=== PATIENT | male | born 1970 | race African-American/Black ===

== ENCOUNTER → 2019-01-14 | Outpatient (CLI) | payer BC ==
[2019-01-14 06:58] LABS: BASOPHILS % 0.3 % (0.0-2.0); EOSINOPHILS % 1.8 % (0.0-5.0); HEMATOCRIT. 45.6 % (42.0-52.0); LYMPHOCYTES % 52.5 % (20.0-50.0); MEAN CORPUSCULAR VOLUME 82.2 fL (80.0-94.0); MEAN PLATELET VOLUME 9.3 fl (7.4-10.4); MONOCYTES % 9.4 % (2.0-8.0); PLATELET 200 x1000/uL (130-400); RED BLOOD CELL COUNT 5.55 mill/uL (4.7-6.1); RED CELL DISTRIBUTION WIDTH 14.7 % (11.6-14.6)
[2019-01-14 07:17] LABS: CHLORIDE 109 mEq/L (98-107)
[2019-01-14 07:27] LABS: HDL CHOLESTEROL 89 mg/dL (40-59); LDL CHOLESTEROL 73 mg/dL (5-100); TOTAL IRON BINDING CAPACITY 310 ug/dL (250-450)
[2019-01-17 13:48] LABS: PROSTRATE SPECIFIC AG TOTAL 0.87 ng/mL (0.0-4.0)
== END | disposition home or self-care (01) ==
LOC: LAB 05:59
PROVIDERS: ATTEND Family Medicine
DX: Z00.01 Encounter for general adult medical examination with abnormal findings (principal)
CPT/HCPCS: 36415; 80061; 82607; 83036; 83540; 83550; 84153; 84403; 84443; G0103

== ENCOUNTER → 2022-02-10 | Outpatient (CLI) | payer BC ==
[~2022-02-10] MED LIST: CELE200C PO; CYCL10TA21 PO
[2022-02-10 09:26] LABS: CHLORIDE 109 mEq/L (98-107)
== END | disposition home or self-care (01) ==
LOC: LAB 08:47
PROVIDERS: ATTEND Family Medicine
DX: R10.12 Left upper quadrant pain (principal)
CPT/HCPCS: 36415; 80053

== ENCOUNTER → 2022-02-14 | Outpatient (CLI) | payer BC ==
[~2022-02-14] MED LIST changes: +IOHEXOL-300 100 ML BOTTLE ONE
== END | disposition home or self-care (01) ==
LOC: CT 07:08
PROVIDERS: ATTEND Family Medicine
DX: K44.9 Diaphragmatic hernia without obstruction or gangrene (principal); K40.20 Bilateral inguinal hernia, without obstruction or gangrene, not specified as recurrent; K57.30 Diverticulosis of large intestine without perforation or abscess without bleeding; K22.89 Other specified disease of esophagus; D18.09 Hemangioma of other sites; Z98.890 Other specified postprocedural states
CPT/HCPCS: 74178; Q9967; Z7610

== ENCOUNTER 2022-12-07 17:39 | Emergency (ER) | payer BC ==
[~2022-12-07] VITALS: Ht 193 cm; Wt 90.0 kg
[~2022-12-07 17:39] MED LIST changes: -IOHEXOL-300 100 ML BOTTLE ONE
[2022-12-07] MEDS ORDERED: ONDANSETRON HCL 4MG/2ML INJ IV ONE (18:00)
[2022-12-07] MEDS ORDERED: SODIUM CHLORIDE 0.9% 1,000 ML IV ONE (18:00)
[2022-12-07] MEDS ORDERED: MORPHINE SULFATE 4 MG/ML CPJ (NOT FOR IM USE) IV ONE (18:00)
[2022-12-07 18:17] LABS: BASOPHILS % 2.1 % (0.0-2.0); EOSINOPHILS % 1.6 % (0.0-5.0); HEMATOCRIT. 44.5 % (42.0-52.0); HEMOGLOBIN. 14.9 g/dL (14.0-18.0); LYMPHOCYTES % 48.3 % (20.0-50.0); MEAN CORPUSCULAR VOLUME 77.8 fL (80.0-94.0); MONOCYTES % 9.1 % (2.0-8.0); NEUTROPHILS % 38.9 % (40.0-76.0); PLATELET 248 x1000/uL (130-400); RED BLOOD CELL COUNT 5.72 mill/uL (4.7-6.1); RED CELL DISTRIBUTION WIDTH 14.9 % (11.6-14.6)
[2022-12-07 18:35] LABS: CHLORIDE 108 mEq/L (98-107)
[2022-12-07 18:49] LABS: PROTHROMBIN TIME 10.7 sec (9.6-11.0)
[2022-12-07 21:10] LABS: CLARITY URINE CLEAR (CLEAR); COLOR URINE YELLOW (YELLOW); KETONES URINE NEGATIVE (NEGATIVE); LEUKOCYTE ESTERASE URINE NEGATIVE (NEGATIVE); NITRITE URINE NEGATIVE (NEGATIVE); OCCULT BLOOD URINE NEGATIVE (NEGATIVE); PH URINE 6.5 (4.5-8.0); PROTEIN URINE NEGATIVE (NEGATIVE); SPECIFIC GRAVITY URINE 1.014 (1.005-1.030)
[2022-12-07] MEDS ORDERED: PANTOPRAZOLE SODIUM 40 MG/VIAL IV ONE (21:15)
[2022-12-07] MEDS ORDERED: ACETAMINOPHEN 650MG/20.3ML UDC PO ONE (21:15)
[2022-12-07] MEDS ORDERED: MAGNESIUM/ALUMINUM HYDROXIDE/SIMETHICONE 30ML UDC PO ONE (21:15)
[2022-12-07 21:21] LABS: *AMPHETAMINES SCREEN URINE NEGATIVE (NEGATIVE); *BARBITURATES SCREEN URINE NEGATIVE (NEGATIVE); *BENZODIAZEPINES SCREEN URINE NEGATIVE (NEGATIVE); *COCAINE SCREEN URINE NEGATIVE (NEGATIVE); CANNABINOID URINE SCREEN NEGATIVE (NEGATIVE); METHADONE URINE SCREEN NEGATIVE (NEGATIVE); OPIATES URINE SCREEN PRESUMTIVE POSITIVE (NEGATIVE); PHENCYCLIDINE URINE SCREEN NEGATIVE (NEGATIVE)
[2022-12-07] MEDS ORDERED: ASPIRIN 325MG EC TABLET PO ONE (21:45)
[2022-12-08] MEDS ORDERED: OMEP40CA20 MT (03:06)
[2022-12-08] MEDS ORDERED: ONDA4TAB50 MT (03:06)
[2022-12-08 04:30] VITALS: BP 105/72
== END 2022-12-08 04:48 | disposition home or self-care (01) ==
LOC: ER 17:39
DX: R10.13 Epigastric pain (principal)
CPT/HCPCS: 36415; 71045; 74176; 80053; 80305; 81003; 83690; 84484; 85025; 85610; 93005; 96361; 96374; 96375; 99285; C9113; J2270; J2405; J7030

== ENCOUNTER → 2023-09-07 | Outpatient (CLI) | payer BC ==
[~2023-09-07] MED LIST changes: +OMEP40CA20 MT; +ONDA4TAB50 MT
[2023-09-07 13:11] LABS: CALCIUM 9.4 mg/dL (8.7-10.4); CARBON DIOXIDE 26 mEq/L (21-32); CHLORIDE 105 mEq/L (98-107); CREATININE 1.3 mg/dL (0.6-1.3); GLUCOSE 73 mg/dL (70-105); POTASSIUM 4.1 mEq/L (3.5-5.1); SODIUM 139 mEq/L (136-145); UREA NITROGEN BLOOD 15 mg/dL (9-23)
== END | disposition home or self-care (01) ==
LOC: LAB 10:38
DX: I63.9 Cerebral infarction, unspecified (principal)
CPT/HCPCS: 36415; 80048

== ENCOUNTER → 2023-09-11 | Outpatient (CLI) | payer BC ==
[~2023-09-11] MED LIST changes: +IOHEXOL-350 100 ML BOTTLE ONE
== END | disposition home or self-care (01) ==
LOC: CT 06:10
DX: I63.9 Cerebral infarction, unspecified (principal)
CPT/HCPCS: 70496; 70498; Q9967

== ENCOUNTER → 2023-09-17 | Outpatient (CLI) | payer BC ==
[~2023-09-17] MED LIST changes: -IOHEXOL-350 100 ML BOTTLE ONE
[2023-09-17 09:15] LABS: EOSINOPHILS % 1.5 % (0.0-5.0); HEMATOCRIT. 44.8 % (42.0-52.0); HEMOGLOBIN. 14.1 g/dL (14.0-18.0); LYMPHOCYTES % 47.4 % (20.0-50.0); MEAN CORPUSCULAR HEMOGLOBIN 25.3 pg (28.0-32.0); MEAN CORPUSCULAR HGB CONC 31.5 g/dL (31.0-37.0); MEAN CORPUSCULAR VOLUME 80.4 fL (80.0-94.0); MEAN PLATELET VOLUME 9.4 fl (7.4-10.4); MONOCYTES % 9.4 % (2.0-8.0); NEUTROPHILS % 38.7 % (40.0-76.0); PLATELET 184 x1000/uL (130-400); RED BLOOD CELL COUNT 5.58 mill/uL (4.7-6.1); RED CELL DISTRIBUTION WIDTH 14.7 % (11.6-14.6)
[2023-09-17 09:38] LABS: ALANINE AMINOTRANSFERASE 8 IU/L (10-49); ALBUMIN 4.4 g/dL (3.2-4.8); ASPARTATE AMINOTRANSFERASE 20 IU/L (<34); CARBON DIOXIDE 28 mEq/L (21-32); CHLORIDE 106 mEq/L (98-107); CHOLESTEROL 199 mg/dL (<200); CREATININE 1.3 mg/dL (0.6-1.3); GLUCOSE 74 mg/dL (70-105); HDL CHOLESTEROL 79 mg/dL (>55); LDL CHOLESTEROL 104 mg/dL (5-100); POTASSIUM 4.3 mEq/L (3.5-5.1); PROTEIN TOTAL 7.4 g/dL (6.0-8.3); SODIUM 138 mEq/L (136-145); TRIGLYCERIDE 56 mg/dL (0-150); UREA NITROGEN BLOOD 11 mg/dL (9-23)
== END | disposition home or self-care (01) ==
LOC: LAB 08:51
DX: I63.9 Cerebral infarction, unspecified (principal)
CPT/HCPCS: 36415; 80053; 80061; 83036; 85025

== ENCOUNTER 2025-02-09 14:49 | Emergency (ER) | payer BC, MEDICAID ==
[~2025-02-09] VITALS: Ht 188 cm; Wt 90.0 kg
[~2025-02-09 14:49] MED LIST changes: +CEL200 PO; -CELE200C PO
[2025-02-09 14:52] VITALS: O2SAT 100
[2025-02-09] MEDS ORDERED: ASPI-1497 PO (14:59)
[2025-02-09] MEDS ORDERED: ROPI2TAB28 MT (15:01)
[2025-02-09] MEDS ORDERED: CARB-33 PO (15:01)
[2025-02-09 15:02] LABS: BASOPHILS % 1.1 % (0.0-2.0); EOSINOPHILS % 1.5 % (0.0-5.0); HEMATOCRIT. 41.4 % (42.0-52.0); HEMOGLOBIN. 13.1 g/dL (14.0-18.0); LYMPHOCYTES % 45.2 % (20.0-50.0); MEAN PLATELET VOLUME 9.3 fl (7.4-10.4); MONOCYTES % 9.5 % (2.0-8.0); NEUTROPHILS % 42.7 % (40.0-76.0); PLATELET 201 x1000/uL (130-400); RED BLOOD CELL COUNT 5.36 mill/uL (4.7-6.1); RED CELL DISTRIBUTION WIDTH 15.6 % (11.6-14.6)
[2025-02-09] MEDS: SODIUM CHLORIDE 0.9% 1,000 ML IV ONE (15:08)
[2025-02-09 15:17] LABS: INR 1.0
[2025-02-09 15:18] LABS: CREATININE 1.3 mg/dL (0.6-1.3)
[2025-02-09 15:19] LABS: ETHANOL BLOOD < 10 mg/dL (<10); TROPONIN I HIGH SENSITIVITY < 4 ng/L (3.0-53); UREA NITROGEN BLOOD 12 mg/dL (9-23)
[2025-02-09 15:20] LABS: ASPARTATE AMINOTRANSFERASE 15 IU/L (<34)
[2025-02-09 15:21] LABS: BILIRUBIN DIRECT 0.1 mg/dL (<=3.0); BILIRUBIN TOTAL 0.4 mg/dL (0.1-1.0); PROTEIN TOTAL 6.6 g/dL (6.0-8.3)
[2025-02-09 17:14] LABS: TROPONIN I HIGH SENSITIVITY < 4 ng/L (3.0-53)
[2025-02-09 17:52] VITALS: BP 129/80; PULSE 77; RESP 18; O2SAT 98
== END 2025-02-09 17:53 | disposition home or self-care (01) ==
LOC: ER 14:49
DX: R55 Syncope and collapse (principal); G20.A1 Parkinson's disease without dyskinesia, without mention of fluctuations; Z79.899 Other long term (current) drug therapy
CPT/HCPCS: 36415; 71045; 80048; 80076; 80320; 82962; 83735; 84484; 85025; 93005; 96360; 99285; G0480

== ENCOUNTER 2025-05-20 04:01 | Inpatient (IN) | payer BC, MEDICAID ==
[~2025-05-20] VITALS: Ht 188 cm; Wt 89.4 kg
[~2025-05-20 04:01] MED LIST changes: +ASPI-1497 PO; +CARB-33 PO; +ROPI2TAB28 MT
[2025-05-20 04:08] VITALS: O2SAT 100
[2025-05-20] MEDS: KETOROLAC 15MG/ML VIAL IV ONE (05:17)
[2025-05-20 07:44] LABS: BASOPHILS % 0.8 % (0.0-2.0); EOSINOPHILS % 1.7 % (0.0-5.0); HEMATOCRIT. 38.9 % (42.0-52.0); HEMOGLOBIN. 12.1 g/dL (14.0-18.0); LYMPHOCYTES % 48.3 % (20.0-50.0); MEAN PLATELET VOLUME 9.0 fl (7.4-10.4); MONOCYTES % 10.1 % (2.0-8.0); NEUTROPHILS % 39.1 % (40.0-76.0); PLATELET 206 x1000/uL (130-400); RED BLOOD CELL COUNT 5.11 mill/uL (4.7-6.1); RED CELL DISTRIBUTION WIDTH 15.6 % (11.6-14.6)
[2025-05-20 08:04] LABS: TROPONIN I HIGH SENSITIVITY < 4 ng/L (3.0-53)
[2025-05-20 08:29] LABS: CREATININE 1.2 mg/dL (0.6-1.3); UREA NITROGEN BLOOD 7 mg/dL (9-23)
[2025-05-20 08:31] LABS: ASPARTATE AMINOTRANSFERASE 11 IU/L (<34); BILIRUBIN DIRECT 0.2 mg/dL (<=3.0); BILIRUBIN TOTAL 0.7 mg/dL (0.1-1.0); PROTEIN TOTAL 5.9 g/dL (6.0-8.3)
[2025-05-20] MEDS: DIAZEPAM 5 MG TABLET PO ONE (09:34)
[2025-05-20] MEDS ORDERED: CLONIDINE 0.1MG TABLET PO PRN (12:30)
[2025-05-20] MEDS ORDERED: IPRATROPIUM/ALBUTEROL 0.5-3(2.5)MG/3ML NEB HHN PRN (12:30)
[2025-05-20] MEDS ORDERED: ATROPINE SULFATE 1MG/ML VIAL IV PRN (12:30)
[2025-05-20] MEDS ORDERED: ACETAMINOPHEN 325MG TABLET PO PRN (12:30)
[2025-05-20] MEDS: PANTOPRAZOLE SODIUM 40 MG/VIAL IV SCH (14:50)
[2025-05-20] MEDS: DEXT 5%/0.45% NACL 1000ML 1,000 ML IV SCH (14:50)
[2025-05-20] MEDS ORDERED: NALOXONE HCL 0.4MG/ML VIAL IV PRN (15:15)
[2025-05-20 15:51] VITALS: BP 122/83; PULSE 47; RESP 16; TEMP 37.0852
[2025-05-20 16:00] VITALS: BP 112/74; PULSE 53; RESP 16; TEMP 36.9; O2SAT 98
[2025-05-20] MEDS: HYDROMORPHONE HCL/PF 2MG/ML INJ IV SCH (16:48)
[2025-05-20] MEDS: ONDANSETRON HCL 4MG/2ML INJ IV PRN (18:55)
[2025-05-20] MEDS ORDERED: PATIENT'S OWN MEDICATION PO SCH (19:15)
[2025-05-20] MEDS ORDERED: NON FORMULARY MED XX SCH (19:15)
[2025-05-20 20:00] VITALS: BP 107/73; PULSE 47; RESP 16; TEMP 36.2; O2SAT 98
[2025-05-20] MEDS ORDERED: AMANTADINE 100MG CAPSULE PO SCH (21:00)
[2025-05-20] MEDS: BACLOFEN 10MG TABLET PO SCH (21:29)
[2025-05-21] VITALS: BP 113/72; PULSE 48; RESP 17; TEMP 36.3; O2SAT 98
[2025-05-21 04:00] VITALS: BP 108/71; PULSE 47; RESP 16; TEMP 36.3; O2SAT 99
[2025-05-21] MEDS: HYDROCODONE/ACETAMINOPHEN 5/325MG TABLET PO PRN (05:39)
[2025-05-21 08:00] VITALS: BP_SYST 103; BP_SYST 165; BP_DIAS 66; BP_DIAS 93; PULSE 68; RESP 17; TEMP 36.6; O2SAT 96
[2025-05-21 08:01] LABS: BASOPHILS % 2.6 % (0.0-2.0); EOSINOPHILS % 1.8 % (0.0-5.0); HEMATOCRIT. 36.7 % (42.0-52.0); HEMOGLOBIN. 11.7 g/dL (14.0-18.0); LYMPHOCYTES % 33.4 % (20.0-50.0); MEAN PLATELET VOLUME 9.6 fl (7.4-10.4); MONOCYTES % 9.7 % (2.0-8.0); NEUTROPHILS % 52.5 % (40.0-76.0); PLATELET 200 x1000/uL (130-400); RED BLOOD CELL COUNT 4.84 mill/uL (4.7-6.1); RED CELL DISTRIBUTION WIDTH 15.3 % (11.6-14.6)
[2025-05-21 08:22] LABS: CREATININE 1.0 mg/dL (0.6-1.3); UREA NITROGEN BLOOD 6 mg/dL (9-23)
[2025-05-21 08:36] LABS: T4 FREE 1.15 ng/dL (0.89-1.76)
[2025-05-21 08:45] LABS: HEPATITIS C AB NON REACTIVE (Neg) (Negative)
[2025-05-21] MEDS ORDERED: DOCUSATE SODIUM 250MG CAPSULE PO PRN (09:00)
[2025-05-21 12:00] VITALS: BP 100/62; PULSE 65; RESP 17; TEMP 36.3; O2SAT 99
[2025-05-21 14:21] LABS: FOLIC ACID (FOLATE) SERUM 9.27 ng/mL (>5.38); VITAMIN B12 SERUM 330 pg/mL (211-911)
[2025-05-21 16:00] VITALS: BP 106/75; PULSE 50; RESP 17; TEMP 36.7; O2SAT 100
[2025-05-21] MEDS: ACETAMINOPHEN 325MG TABLET PO PRN (16:49)
[2025-05-21 20:00] VITALS: BP 116/70; PULSE 51; RESP 17; TEMP 36.3; O2SAT 98
[2025-05-22] VITALS: BP 112/65; PULSE 46; RESP 17; TEMP 36.3; O2SAT 99
[2025-05-22 04:00] VITALS: BP 110/62; PULSE 51; RESP 16; TEMP 36.3; O2SAT 100
[2025-05-22 07:30] LABS: BASOPHILS % 1.8 % (0.0-2.0); CREATININE 1.2 mg/dL (0.6-1.3); EOSINOPHILS % 2.3 % (0.0-5.0); HEMATOCRIT. 36.5 % (42.0-52.0); HEMOGLOBIN. 11.6 g/dL (14.0-18.0); LYMPHOCYTES % 52.7 % (20.0-50.0); MEAN PLATELET VOLUME 9.7 fl (7.4-10.4); MONOCYTES % 9.1 % (2.0-8.0); NEUTROPHILS % 34.1 % (40.0-76.0); PLATELET 196 x1000/uL (130-400); RED BLOOD CELL COUNT 4.78 mill/uL (4.7-6.1); RED CELL DISTRIBUTION WIDTH 15.8 % (11.6-14.6)
[2025-05-22 07:31] LABS: UREA NITROGEN BLOOD < 5 mg/dL (9-23)
[2025-05-22 08:00] VITALS: BP 110/58; PULSE 56; RESP 16; TEMP 36.3; O2SAT 100
[2025-05-22 12:00] VITALS: BP 120/79; PULSE 50; RESP 16; TEMP 36.5; O2SAT 100
[2025-05-22 16:00] VITALS: BP 110/80; PULSE 48; RESP 18; TEMP 36.7; O2SAT 99
[2025-05-22 20:00] VITALS: BP 102/70; PULSE 58; RESP 20; TEMP 36.8; O2SAT 98
[2025-05-23 04:00] VITALS: BP 109/66; PULSE 59; RESP 20; TEMP 36.7; O2SAT 100
[2025-05-23 08:00] VITALS: BP 116/74; PULSE 62; RESP 16; TEMP 36.8; O2SAT 98
[2025-05-23] MEDS ORDERED: BACL5TAB PO (10:38)
[2025-05-23] MEDS ORDERED: AMAN100T MT (10:38)
[2025-05-23] MEDS ORDERED: ATOR20TA65 MT (10:38)
[2025-05-23 10:56] VITALS: BP 132/79; PULSE 72; RESP 16; TEMP 98.3
[2025-05-23 12:00] VITALS: BP 113/67; PULSE 65; RESP 18; TEMP 36.7; O2SAT 98
== END 2025-05-23 14:40 | disposition home or self-care (01) | DRG 57 ==
LOC: ER 04:01 → 8EST 10:11 → ENRESERV 13:44
PROVIDERS: ADMIT Hospitalist; ATTEND Hospitalist
DX: G20.A1 Parkinson's disease without dyskinesia, without mention of fluctuations (principal); D50.9 Iron deficiency anemia, unspecified; D72.819 Decreased white blood cell count, unspecified; R00.1 Bradycardia, unspecified; M47.812 Spondylosis without myelopathy or radiculopathy, cervical region; Z79.82 Long term (current) use of aspirin; Z79.899 Other long term (current) drug therapy
CPT/HCPCS: 36415; 71045; 72141; 73060; 80048; 80076; 80320; 82550; 82607; 82746; 83540; 83550; 83735; 83880; 84439; 84443; 84481; 84484; 85025; 86705; 87340; 93005; 93971; 97161; 99285; A4606; J1171; J1885; J2405; J2470; G0480